=== PATIENT | male | born 1965 | race Caucasian/White ===

== ENCOUNTER 2022-03-22 04:39 | Emergency (ER) | payer OTHER ==
[2022-03-22 05:38] LABS: BASOPHIL 0.3 % (0-2); EOSINOPHIL 0.9 % (0-5); HCT 47.9 % (42.0-52.0); HGB 15.9 g/dl (13.2-18.0); LYMPHOCYTE 6.4 % (15-48); MCH 28.8 pg (25.0-31.0); MCHC 33.2 g/dL (32.0-36.0); MCV 86.8 fL (78.0-100.0); MONOCYTE 14.4 % (0-12); MPV 9.9 fL (6.0-9.5); NEUTROPHIL 77.2 % (41-80); NRBC 0; PLT 186 K/uL (150-400); RBC 5.52 M/uL (4.70-6.00); RDW 13.4 % (11.5-14.0); WBC 11.7 K/uL (4.0-10.5)
[2022-03-22 05:57] LABS: ALBUMIN 3.3 g/dL (3.4-5.0); BILIRUBIN - TOTAL 0.9 mg/dL (0.2-1.0); BUN/CREAT RATIO (CALC) 19.6 RATIO; CREATININE 0.92 mg/dL (0.67-1.17); GLOBULIN (CALCULATION) 4.5 g/dL; TOTAL PROTEIN 7.8 g/dL (6.4-8.2)
[2022-03-22 06:04] LABS: CORONAVIRUS 2019 SARS-COV-2 NEGATIVE (NEGATIVE); INFLUENZA A NAA NEGATIVE (NEGATIVE)
== END 2022-03-22 06:42 | disposition home or self-care (01) ==
LOC: FER 04:39
PROVIDERS: Emergency Medicine
DX: R50.9 Fever, unspecified (principal); M79.10 Myalgia, unspecified site; L50.9 Urticaria, unspecified; E11.9 Type 2 diabetes mellitus without complications; E78.5 Hyperlipidemia, unspecified; Z20.822 Contact with and (suspected) exposure to COVID-19; Z79.899 Other long term (current) drug therapy; Z88.0 Allergy status to penicillin; Z88.5 Allergy status to narcotic agent; Z91.041 Radiographic dye allergy status
CPT/HCPCS: 36415; 80053; 85025; J1200; J1885; J2405; J2930; J7030; U0002